=== PATIENT | male | born 1950 | race Caucasian/White ===

== ENCOUNTER → 2019-02-14 | Outpatient (CLI) | payer BC ==
--- NOTE | 2019-02-14 22:06 | XR ---
EXAMINATION TYPE: XR Hip Bilateral Complete DATE OF EXAM: 02/14/2019 COMPARISON: NONE HISTORY: Pain TECHNIQUE: 2 views submitted FINDINGS: There is moderate to severe narrowing of the superior compartment of the right hip joint. There are 2 sclerotic foci involving the proximal right femur. No erosive changes. No acute fracture. No disloca tion. Left hip demonstrates complete loss of joint space superiorly. Spurring along the femoral head noted. No erosive changes. No acute fracture. IMPRESSION: 1. 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 2. Moderate to severe arthropathy right hip. 3. Nonspecific sclerotic foci involving the proximal right femur. Bone scan recommended. Findings cou ld be on the basis of bone island. Other etiologies not excluded.
--- NOTE | 2019-02-14 22:08 | XR ---
EXAM TYPE: LUMBAR SPINE X RAY SERIES COMPARISON: NONE HISTORY: Pain TECHNIQUE: 3 views are submitted. FINDINGS: Alignment is anatomic. The pedicles are intact. The transverse processes are intact. There is mult ilevel hypertrophic and degenerative changes. Multilevel facet arthropathy. Spurring noted anteriorly . Most marked findings seen at levels L4-5 and L5-S1. Arthropathy of the interspinous joints noted co rrelate for Macon's disease. IMPRESSION: 1. Multilevel degenerative disc disease and facet arthropathy. Suspect foraminal encroachment at leve ls L3-S1. Recommend MRI.
== END | disposition home or self-care (01) ==
LOC: RADXRMAIN 15:55
PROVIDERS: ATTEND Family Medicine
DX: M51.36 Other intervertebral disc degeneration, lumbar region (principal); M46.96 Unspecified inflammatory spondylopathy, lumbar region; M16.0 Bilateral primary osteoarthritis of hip
CPT/HCPCS: 72100; 73521

== ENCOUNTER → 2019-02-18 | Outpatient (CLI) | payer BC ==
--- NOTE | 2019-02-21 08:14 | NM ---
EXAMINATION TYPE: NM bone scan whole body DATE OF EXAM: 02/18/2019 COMPARISON: Hip x-ray 02/14/2019 HISTORY: Abnormal x-ray Delayed whole-body scanning was performed following the injection of 25.1 mCi Tc 99m MDP. Images acq uired 3 hours post injection. FINDINGS: Mild uptake involving the hip joints bilaterally most typical of arthritic change. No abnormal uptake corresponding x-ray abnormality. Abnormal uptake involving the knees, ankles, and shoulders likely post arthritic. Nonspecific uptake involving the right axilla. Abnormal uptake involving the sternoclavicular joints likely post arthritic. Nonspecific uptake throughout the thoracic and mid and lower lumbar spine likely degenerative. IMPRESSION: 1. No abnormal uptake corresponding to the sclerotic lesions involving the right femur. Therefore, th jackelin likely represent bone island. 2. Abnormal uptake involving the hip joints bilaterally compatible with arthritic changes. 3. Nonspecific uptake involving vertebral column most typical of degenerative changes
== END | disposition home or self-care (01) ==
LOC: RADNMMAIN 11:15
PROVIDERS: ATTEND Family Medicine
DX: M47.899 Other spondylosis, site unspecified (principal)
CPT/HCPCS: 78306; A9503

== ENCOUNTER → 2020-11-14 | Day surgery (SDC) | payer BC ==
[2020-11-12 09:55] VITALS: BMI 27.8
[~2020-11-14] MED LIST: LACTATED RINGERS 1,000 ML IV SCH; LIDOCAINE 1% (10MG/ML) FOR IV START INTRADERMA PRN; PROPOFOL 10 MG/ML 20 ML VIAL IV ONE
[2020-11-14 09:42] VITALS: TEMP 98.5
--- NOTE | 2020-11-14 10:34 | P.PCN ---
Date of Procedure: 11/14/20 Procedure(s) Performed: BRIEF HISTORY: Patient is a 70-year-old pleasant male scheduled for an elective colonoscopy as a part of evaluation of prior history of colon polyps. His last colonoscopy was done 3 years ago. PROCEDURE PERFORMED: Colonoscopy. PREOPERATIVE DIAGNOSIS: Colon polyps. IV sedation per Anesthesia. PROCEDURE: After informed consent was obtained, the patient, was brought into the endoscopy unit. IV sedation was administered by Anesthesia under continuous monitoring. Digital rectal examination was normal. Initially the Olympus CF-160 flexible video colonoscope was then inserted in the rectum, gradually advanced into the cecum without any difficulty. Careful examination was performed as the scope was gradually being withdrawn. Ileocecal valve and the appendiceal orifice were visualized and appeared normal. Prep was excellent. Mucosa of the cecum, ascending colon, transverse colon, descending colon, sigmoid colon, and rectum appeared normal. Retroflexion was performed in the rectum and no lesions were seen. The patient tolerated the procedure well. IMPRESSION: Normal-appearing colon from rectum to cecum with no evidence of colorectal neoplasia. RECOMMENDATIONS: Findings of this examination were discussed with the patient as well as his family. He was advised to have a repeat surveillance colonoscopy in 5 years from now because of the prior history of colon polyps.
[2020-11-14 10:39] VITALS: PULSE 66; RESP 17
[2020-11-14 10:53] VITALS: BP 174/90
== END ==
LOC: ORWHC2ENDO 08:41
PROVIDERS: ATTEND Internal Medicine Gastroenterology
DX: Z12.11 Encounter for screening for malignant neoplasm of colon (principal); Z86.010 Personal history of colon polyps; F17.290 Nicotine dependence, other tobacco product, uncomplicated; Z97.2 Presence of dental prosthetic device (complete) (partial)
CPT/HCPCS: J2704; G0105; 45378

== ENCOUNTER → 2023-05-25 | Outpatient (CLI) | payer BC ==
--- NOTE | 2023-05-26 07:35 | CA ---
Transthoracic Echo Report Name: Bruno Ramirez Age: 73 Gender: M : 1950 Exam Date: 05/25/2023 15:18 Exam Location: [facility] Ht (in): 72 Wt (lb): 220 Ordering Physician: Geovanny Robledo DO Attending/Referring Phys: Manager Employee Benefits Alyce Foley RDCS Procedure CPT: Indications: I51.7 Cardiomegaly Cardiac Hx: Technical Quality: Fair Contrast 1: Total Dose (mL): Contrast 2: Total Dose (mL): MEASUREMENTS (Male / Female) Normal Values 2D ECHO LV Diastolic Diameter PLAX 3.3 cm 4.2 - 5.9 / 3.9 - 5.3 cm LV Systolic Diameter PLAX 2.1 cm IVS Diastolic Thickness 2.2 cm 0.6 - 1.0 / 0.6 - 0.9 cm LVPW Diastolic Thickness 1.8 cm 0.6 - 1.0 / 0.6 - 0.9 cm LV Relative Wall Thickness 1.2 RV Internal Dim ED PLAX 3.1 cm LA Volume 101.3 cm??? 18 - 58 / 22 - 52 cm??? LA Volume Index 44.6 cm???/m??? 16 - 28 cm???/m??? M-MODE Aortic Root Diameter MM 3.6 cm LA Systolic Diameter MM 5.1 cm LA Ao Ratio MM 1.4 AV Cusp Separation MM 2.3 cm DOPPLER AV Peak Velocity 123.6 cm/s AV Peak Gradient 6.1 mmHg AV Mean Velocity 88.0 cm/s AV Mean Gradient 3.4 mmHg AV Velocity Time Integral 20.4 cm AI Peak Velocity 260.7 cm/s AI Peak Gradient 27.2 mmHg AI Pressure Half Time 584.2 ms LVOT Peak Velocity 115.8 cm/s LVOT Peak Gradient 5.4 mmHg LVOT Velocity Time Integral 21.5 cm MV Area PHT 4.0 cm??? Mitral E Point Velocity 42.4 cm/s Mitral A Point Velocity 64.6 cm/s Mitral E to A Ratio 0.7 MV Deceleration Time 190.6 ms MV E' Velocity 5.1 cm/s Mitral E to MV E' Ratio 8.3 FINDINGS Left Ventricle Severely increased left ventricular wall thickness. Left ventricular cavity size normal. Reduced global left ventricular systolic function. Left ventricular ejection fraction is estimated at 40-45 %. Right Ventricle Normal right ventricular size and function. Right ventricular systolic pressure within normal limits. Right Atrium Normal right atrial size. Left Atrium Severely increased left atrial volume. Mildly increased left atrial area. Mitral Valve Mitral valve thickened. Mild mitral annular calcification. [id number] mitral regurgitation. Aortic Valve Trileaflet aortic valve. Thickened aortic valve without stenosis. Mild aortic regurgitation. Tricuspid Valve Structurally normal tricuspid valve. Mild to moderate tricuspid regurgitation. Pulmonic Valve Pulmonic valve not well visualized. Pericardium No pericardial effusion. Aorta Normal size aortic root and proximal ascending aorta. CONCLUSIONS 1. Mild to moderate global hypokinesis with severe hypertrophy 2. Mild to moderate mitral and tricuspid regurgitation with mild aortic regurgitation Previewed by: Dr. Angel Florez MD (Electronically Signed) Final Date: 26 May 2023 07:34
== END | disposition home or self-care (01) ==
LOC: RADECHMAIN 14:58
PROVIDERS: ATTEND Family Medicine
DX: I08.3 Combined rheumatic disorders of mitral, aortic and tricuspid valves (principal)
CPT/HCPCS: 93306

== ENCOUNTER → 2023-06-29 | Outpatient (CLI) | payer BC ==
[2023-06-29 15:58] LABS: HCT 44.1 % (39.6-50.0); HGB 14.7 g/dL (13.0-17.0); MCH 29.8 pg (27.0-32.0); MCHC 33.3 g/dL (32.0-37.0); MCV 89.5 FL (80.0-97.0); NRBC Per 100 WBC 0 X 10*3/uL (0.00-0.01); Platelet Count 143 X 10*3/uL (140-440); RBC 4.93 X 10*6/uL (4.40-5.60); RDW 15.6 % (11.5-14.5); WBC 8.29 X 10*3/uL (4.50-10.00)
[2023-06-29 16:15] LABS: BUN/Creat Ratio 24.75 Ratio (12.00-20.00); Blood Urea Nitrogen 19.8 mg/dL (9.0-27.0); Calcium 9.3 mg/dL (8.7-10.3); Carbon Dioxide 24.1 mmol/L (21.6-31.8); Chloride 104 mmol/L (96-109); Glucose 108 mg/dL (70-110); Sodium 141 mmol/L (135-145)
== END | disposition home or self-care (01) ==
LOC: LABWHC1 09:39
PROVIDERS: ATTEND Internal Medicine Cardiovascular Disease
DX: I25.5 Ischemic cardiomyopathy (principal); I10 Essential (primary) hypertension; E78.2 Mixed hyperlipidemia
CPT/HCPCS: 36415; 80048; 85027

== ENCOUNTER → 2023-08-26 | Outpatient (CLI) | payer BC ==
[2023-08-27 02:48] LABS: Blood Urea Nitrogen 14.3 mg/dL (9.0-27.0); HCT 44.9 % (39.6-50.0); MCHC 33.4 g/dL (32.0-37.0); MCV 89.8 FL (80.0-97.0); Mean Platelet Volume 11.2 FL (9.5-12.2); NRBC Per 100 WBC 0 X 10*3/uL (0.00-0.01); Platelet Count 158 X 10*3/uL (140-440); RDW 14.5 % (11.5-14.5); WBC 6.58 X 10*3/uL (4.50-10.00)
[2023-08-27 02:49] LABS: Carbon Dioxide 25.6 mmol/L (21.6-31.8); Chloride 102 mmol/L (96-109); Potassium 3.9 mmol/L (3.5-5.5); Sodium 141 mmol/L (135-145)
== END | disposition home or self-care (01) ==
LOC: LABPAT 14:49
PROVIDERS: ATTEND Internal Medicine Cardiovascular Disease
DX: Z01.812 Encounter for preprocedural laboratory examination (principal); I25.10 Atherosclerotic heart disease of native coronary artery without angina pectoris
CPT/HCPCS: 80051; 82565; 84520; 85027

== ENCOUNTER 2023-09-04 07:37 | Day surgery (SDC) | payer BC ==
[~2023-09-04 07:37] MED LIST changes: +ALPRAZolam 0.25 MG TAB PO PRN; +ASPIRIN 325 MG TAB PO ONE; +ATORVASTATIN 80 MG TAB PO ONE; +HEPARIN SODIUM,PORCINE (1 ML) 2,500 UNIT in SODIUM CHLORIDE 0.9% 250 ML IRRIGATION PRN; +HEPARIN SODIUM,PORCINE 10,000 UNIT in SODIUM CHLORIDE 0.9% 1,000 ML IRRIGATION PRN; -LACTATED RINGERS 1,000 ML IV SCH; -LIDOCAINE 1% (10MG/ML) FOR IV START INTRADERMA PRN; +NITROGLYCERIN SL TABS 0.4 MG TAB SUBLINGUAL PRN; -PROPOFOL 10 MG/ML 20 ML VIAL IV ONE; +SODIUM CHLORIDE 0.9% 1,000 ML in EMPTY BAG 1 BAG IV SCH
[2023-09-04] MEDS: SODIUM CHLORIDE 0.9% 1,000 ML IV ONE (08:00)
[2023-09-04] MEDS: ALPRAZolam 0.5 MG TAB PO PRN (08:04)
[2023-09-04 08:11] VITALS: RESP 18; TEMP 98.1
[2023-09-04] MEDS ORDERED: VERAPAMIL 2.5 MG/ML 2 ML AMP ONE (08:54)
[2023-09-04] MEDS ORDERED: fentaNYL (PF) 50 MCG/ML 2 ML AMP ONE (08:55)
[2023-09-04] MEDS ORDERED: HEPARIN SODIUM 1,000 UN/ML (10ML VL) ONE (08:55)
[2023-09-04] MEDS: MIDAZOLAM 2 MG/2 ML VIAL IVP ONE (09:17)
[2023-09-04] MEDS: fentaNYL (PF) 50 MCG/1 ML VIAL IVP ONE (09:20)
[2023-09-04] MEDS: LIDOCAINE 2% SYG (PF) 100 MG/5 ML MISCELLANE ONE (09:22)
[2023-09-04] MEDS: VERAPAMIL SYRINGE (5 MG/10 ML) INTRAARTER ONE (09:24)
[2023-09-04] MEDS ORDERED: IBUPROFEN 800 MG TAB PO PRN (10:09)
[2023-09-04] MEDS: IOPAMIDOL-370 100ML BTL IVP ONE (10:15)
[2023-09-04] MEDS: LOSARTAN 50 MG TAB PO STA (11:26)
[2023-09-04] MEDS: METOPROLOL SUCCINATE (ER) 50 MG TAB.ER.24H PO STA (11:26)
--- NOTE | 2023-09-04 12:28 | CC ---
CARDIAC CATHETERIZATION REPORT INDICATIONS: Cardiomyopathy. PROCEDURE NOTE: After obtaining informed consent, left heart catheterization and coronary angiogram were performed via right radial artery. The patient tolerated the procedure well without any obvious immediate complications. He received moderate conscious sedation. Total sedation time was 40 minutes. I obtained right radial artery access using Seldinger technique. A 6-Indian sheath was placed and I initially attempted cardiac catheterization through this. However, because of extreme tortuosity at the level of the subclavian artery, I was not able to engage the right coronary artery. Following this, I attempted left Meet and multipurpose catheters, both of which could not go past the loop. Due to this, Dr. Palencia, the packing floor worker came and changed over the 6-Indian sheath to a longer sheath initially into Bronson long sheath and even that was not giving him the purchase needed, so we switched him over to Raabe long sheath to which the cardiac catheterization was completed. The procedure was completed uneventfully. He received verapamil and heparin per protocol. The patient is hypertensive and we are increasing the dose of both Toprol and losartan. FINDINGS: 1. Hemodynamics: Left ventricular end-diastolic pressure is 28 mm. There is no significant gradient across the aortic valve. 2. Left ventriculogram: Left ventriculogram is not performed. 3. Angiographic Data: a.Left Main Coronary Artery: Left main coronary artery is a normal-sized vessel and is free of stenosis. Divides into left anterior descending coronary artery and circumflex coronary artery. LAD and its branches, circumflex coronary artery and its branches are free of significant stenosis. Right coronary artery is a large dominant vessel and is free of significant disease. CONCLUSIONS: 1. Normal coronary arteries. 2. Cardiomyopathy, probably related to uncontrolled hypertension. PLAN: We will treat the patient with optimal medical therapy. MMODL / IJN: [id number] /
[2023-09-04 13:33] VITALS: BP 143/87; PULSE 68
[2023-09-05] MEDS ORDERED: ASPIRIN 81 MG PO SCH (09:00)
[2023-09-05] MEDS ORDERED: METOPROLOL SUCCINATE (ER) 50 MG TAB.ER.24H PO SCH (09:00)
[2023-09-05] MEDS ORDERED: ATORVASTATIN 40 MG TAB PO SCH (09:00)
== END 2023-09-04 13:50 | disposition home or self-care (01) ==
LOC: CATHCVL 07:37
PROVIDERS: ATTEND Internal Medicine Cardiovascular Disease
DX: I42.9 Cardiomyopathy, unspecified (principal); I10 Essential (primary) hypertension; Z88.8 Allergy status to other drugs, medicaments and biological substances; Z79.899 Other long term (current) drug therapy; Z79.82 Long term (current) use of aspirin
CPT/HCPCS: 93458; C1894 ×3; C1769 ×4; C1887; J2250; J2001; J1644; Q9967; J3010